=== PATIENT | male | born 1995 | race Caucasian/White ===

== ENCOUNTER 2023-09-28 01:23 | Emergency (ER) | payer SELFPAY ==
[~2023-09-28] VITALS: Ht 165.1 cm; Wt 73.0 kg
[2023-09-28 01:24] VITALS: O2SAT 100
[2023-09-28 02:17] VITALS: TEMP 97.8
[2023-09-28] MEDS: SODIUM CHLORIDE 0.9% 1,000 ML IV ONE (02:48)
[2023-09-28 03:02] LABS: HEMATOCRIT. 42.3 % (42.0-52.0); HEMOGLOBIN. 14.2 g/dL (14.0-18.0); MEAN CORPUSCULAR HEMOGLOBIN 32.5 pg (28.0-32.0); MEAN CORPUSCULAR HGB CONC 33.6 g/dL (31.0-37.0); MEAN CORPUSCULAR VOLUME 96.9 fL (80.0-94.0); MEAN PLATELET VOLUME 9.6 fl (7.4-10.4); PLATELET 80 x1000/uL (130-400); RED BLOOD CELL COUNT 4.36 mill/uL (4.7-6.1); RED CELL DISTRIBUTION WIDTH 15.1 % (11.6-14.6); WHITE BLOOD COUNT 8.1 x1000/uL (4.5-11.0)
[2023-09-28 03:07] LABS: DIFFERENTIAL COMMENT 1
[2023-09-28 03:23] LABS: LACTIC ACID 2.8 mmol/L (0.4-2.0)
[2023-09-28 03:24] LABS: ALANINE AMINOTRANSFERASE 29 IU/L (10-49); ALBUMIN 4.1 g/dL (3.2-4.8); ASPARTATE AMINOTRANSFERASE 73 IU/L (<34); BILIRUBIN TOTAL 1.3 mg/dL (0.1-1.0); CALCIUM 8.3 mg/dL (8.7-10.4); CARBON DIOXIDE 29 mEq/L (21-32); CHLORIDE 104 mEq/L (98-107); CREATININE 1.1 mg/dL (0.6-1.3); GLUCOSE 100 mg/dL (70-105); POTASSIUM 3.9 mEq/L (3.5-5.1); PROTEIN TOTAL 6.3 g/dL (6.0-8.3); SODIUM 139 mEq/L (136-145); TROPONIN I HIGH SENSITIVITY 7 ng/L (3.0-53); UREA NITROGEN BLOOD 7 mg/dL (9-23)
[2023-09-28 03:32] LABS: ETHANOL BLOOD < 10 mg/dL (<10)
[2023-09-28 04:50] VITALS: BP 125/82; PULSE 67; RESP 13
[2023-09-28 05:07] LABS: PLATELET ESTIMATE DECREASED
== END 2023-09-28 04:57 | disposition home or self-care (01) ==
LOC: ER 01:37
DX: R55 Syncope and collapse (principal); R56.9 Unspecified convulsions
CPT/HCPCS: 80053; 80320; 83605; 85025; 84484; 36415; 71045; 70450; 96360; 99284; J7030; G0480